=== PATIENT | male | born 1985 | race Caucasian/White ===

== ENCOUNTER 2016-07-06 15:29 | Emergency (ER) | payer OTHER ==
[2016-07-06 15:32] VITALS: BP 108/71; BMI 24.4
--- NOTE | 2016-07-06 16:52 | RAD ---
HISTORY: Right knee pain. 'Popped out'. Study: Right knee three views Comparison: None. Findings: There is no evidence for acute cortical disruption. The medial and lateral tibiofemoral compartment s are unremarkable without significant joint space narrowing. The lateral radiograph shows a small suprapatellar joint effusion. The patella appears deviated laterally from midline. IMPRESSION: 1. Possible lateral subluxation of the patella. Clinical correlation is recommended. Reported By:
--- NOTE | 2016-07-06 17:25 | DR.GENAD ---
HPI - PCP Primary Care Physician: traci - HPI Comment HPI Comment: PATIENT HAVE PATELLA DISLOCATION OD LEFT KNEE WHICH RESUTED IN SURGERY. NO EPISODE SINCE SURGERY, FELL AT WORK TODAY. RIFHT KNEE FELT LIKE KNEE CAP WAS DISLOCATED. MAY HAVE GONE BACK IN PLACE. STILL SWELLING AND PAIN RIGHT KNEE. PROBLEM BEARING WEIGHT. - Complaint/Symptoms Chief Complaint Doctors Comments: RIGHT KNEE PAIN AFTER FALLING AT WORK. Chief Complaint:: right knee pain after falling at work - Nurses notes reviewed Nurses Notes Review: Yes - Source History Provided: Patient - Mode of Arrival Mode of Arrival: Ambulatory - Timing Onset of Chief Complaint: 07/06/16 Came on: Suddenly - Duration Duration: Intermittent Duration: Hours - Severity Severity: Moderate PMH - PMH Past Medical History: No Past Surgical History: No - Family History History of Family Medical Conditions: No - Social History Does patient currently use any type of tobacco product: No Have you used tobacco products in the last 12 months: No Type of Tobacco Use: None Does any household member use tobacco: No Alcohol Use: None Do you use any recreational Drugs:: No Lives With: Family Lives Where: Home - infectious screening In the last 2 months have you had wt loss of >10#?: NO Have you had fever, night sweats or hemotysis?: No Have you traveled outside the country in the last 6 months?: No Isolation: Standard ROS - Review of Systems Constitutional: No Symptoms Reported Eyes: No Symptoms Reported ENTM: No Symptoms Reported Respiratoy: No Symptoms Reported Cardiovascular: No Symptoms Reported Gastrointestinal/Abdominal: No Symptoms Reported Genitourinary: No Symptoms Reported Neurological: No Symptoms Reported Musculoskeletal: Right, Knee Integumentary: Bruises Hematologic/Lymphatic: No Symptoms Reported Endocrine: No Symptoms Reported All Other Systems: Reviewed and Negative PE - Vital Signs Vitals: Pulse Rate 106 Respiratory Rate 16 Blood Pressure 108/71 O2 Sat by Pulse Oximetry 98 - General Limitations: No Limitations General Appearance: Alert - Head Head Exam: Normal Inspection - Eyes Eye exam: Normal Appearance - ENT ENT Exam: Normal External Ear Exam External Ear Exam: Normal External Inspection TM/Canal Exam: Bilateral Normal Nose Exam: Normal Nose Exam Mouth Exam: Normal Inspection Throat Exam: Normal Inspection - Neck Neck Exam: Trachea Midline - Chest Chest Inspection: Symmetric Chest Wall Rise - Respiratory Respiratory Exam: Normal Lung Sounds Bilat Respiratory Exam: Bilateral Clear to Auscultation - Cardiovascular Cardiovascular Exam: Regular Rate, Normal Rhythm, Normal Heart Sounds - Abdominal Exam Abdominal Exam: Normal Inspection - Extremities Extremities Exam: Tenderness (RIGHT KNEE), Joint Swelling (RT KNEE) - Back Back Exam: Normal Inspection - Neurologic Neurological Exam: Alert, Oriented X3 - Psychiatric Psychiatric Exam: Normal Affect, Normal Mood - Skin Skin Exam: Normal Color MDM - Additional Information Additional Information Obtained From: Family - Differential Diagnosis Differential Diagnosis: RIGHT KNEE CONTUSION, FRCTURE, STRAIN, SPRAIN Course - Treatment Treatment: SEE ORDERS. - Education/Counseling Education/Counseling: Patient, Family, Education Educated On: Treatment, Diagnosis, Needs for Follow Up ROR - Labs Reviewed Laboratory: Non-DOT Drug Screen Collected 07/06/16 18:30 - XRAY XRAY Interpreted by: Radiologist XRAY Findings: REPORT DISCUSS WITH PATIENT AND MOTHER. - Diagnosis Discharge Problem: Subluxation of right patella Qualifiers: Encounter type: initial encounter Qualified Code(s): S83.001A - Unspecified subluxation of right patella, initial encounter Sprain of right knee Qualifiers: Encounter type: initial encounter Involved ligament of knee: unspecified ligament Qualified Code(s): S83.91XA - Sprain of unspecified site of right knee , initial encounter - Discharge Plan Disposition: HOME, SELF-CARE Condition: Stable Prescriptions: Ibuprofen [MOTRIN TAB 800 MG *] 800 mg PO Q8H PRN #20 tab PRN Reason: Pain/Inflammation Tramadol HCl 50 mg PO Q8H PRN #15 tab PRN Reason: Pain - Follow ups/Referrals Follow ups/Referrals: ADDIE GRADY [CONSULTING PHYSICIAN] - 1 day NFD,None [Primary Care Provider] - 1 day - Instructions Instructions: Knee Sprain, [id number], Patellar Dislocation, [id number] Additional Instructions: RETURN TO ED IF WORSE.
[2016-07-06] MEDS ORDERED: TORADOL 60 MG VIAL IM ONE (18:51)
[2016-07-06] MEDS ORDERED: TORADOL 60 MG VIAL ONE (19:13)
--- NOTE | 2016-07-06 19:43 | RAD ---
Two views of the right knee Indication: Postreduction of the patella Comparison: 07/06/2016 Findings: There is hyperextension of the right knee however the patella remains elevated consistent with patella derrick configuration. There is a moderate-sized suprapatellar joint effusion. There is no acute fracture within the right knee. Mild enthesopathic change of the patellar tendon. Impression: 1. Elevation of the patella consistent a patella derrick configuration suggesting and extensor mechanis m injury/instability. Correlation with nonemergent right knee MRI is recommended for further evaluat ion. 2. Moderate-sized joint effusion without evidence of acute fracture within the right knee. Reported By:
== END 2016-07-06 20:08 | disposition home or self-care (01) ==
LOC: ER 15:29
DX: S83.001A Unspecified subluxation of right patella, initial encounter (principal); S83.91XA Sprain of unspecified site of right knee, initial encounter; W19.XXXA Unspecified fall, initial encounter; Y92.69 Other specified industrial and construction area as the place of occurrence of the external cause
CPT/HCPCS: 73560; 96372; 99000; 99282; 99283; J1885

== ENCOUNTER → 2016-07-14 | Outpatient (CLI) | payer OTHER ==
[2016-07-06 15:32] VITALS: BP 108/71
--- NOTE | 2016-07-14 09:32 | RAD ---
HISTORY: Patellar dislocation, follow up Study: Right knee three view Comparison: July 06, 2016 Findings: there is upward subluxation of the patella slightly less prominent than on the prior examination. T here also appears to be some lateral subluxation unchanged from the prior examination. No fracture, lytic, or blastic lesion is identified. IMPRESSION: Patellar subluxation as described above No fracture Reported By:
== END ==
LOC: RAD 08:51
PROVIDERS: ATTEND Specialist
DX: S83.094A Other dislocation of right patella, initial encounter (principal); X58.XXXA Exposure to other specified factors, initial encounter
CPT/HCPCS: 73560